=== PATIENT | female | born 1980 | race Caucasian/White ===

== ENCOUNTER 2016-11-28 14:00 | Outpatient (CLI) | payer MEDICAID ==
[~2016-11-28 14:00] MED LIST: CHOL100092 PO; CITA40TA14 PO; CYCL-375 PO; METF10002 PO; MULT-1198 PO; OXCA150T3 PO; OXYC1TAB8 PO; RANI300C PO
[2016-11-28 14:29] LABS: BLOOD, URINE NEGATIVE (NEGATIVE); COLOR,URINE YELLOW (YELLOW); LEUKOCYTE ESTERASE ,URINE 1+ (NEGATIVE); NITRITE,URINE NEGATIVE (NEGATIVE); UROBILINOGEN,URINE 0.2 EU/DL (NORMAL)
[2016-11-28] MEDS ORDERED: PREN1TAB77 PO (14:52)
[2016-11-28] MEDS ORDERED: ASPI81TA43 PO (14:52)
[2016-11-28] MEDS ORDERED: SERT50TA PO (14:52)
[2016-11-28] MEDS ORDERED: INSU100V12 SQ (14:52)
[2016-11-28] MEDS ORDERED: METF500T4 PO (14:52)
[2016-11-28] MEDS ORDERED: CETI10CA19 PO (14:52)
[2016-11-28 15:02] LABS: BACTERIA,URINE TRACE (NEGATIVE); RBC,URINE NONE SEEN /HPF (0-3); SQUAMOUS EPITHELIAL CELL,UR 20-50
[2016-11-28 15:27] LABS: HCT - HEMATOCRIT 35.1 % (36-46); HGB - HEMOGLOBIN 11.9 GM/DL (12-16); MEAN CORPUSCULAR HGB 30.3 UUG (26-34); MEAN CORPUSCULAR HGB CONC(MCHC 33.9 GM/DL (31-37); MEAN CORPUSCULAR VOLUME 89.3 UM3 (80-100); MEAN PLATELET VOLUME 11.3 UM3 (9.4-12.4); RED BLOOD COUNT 3.93 M/MM3 (4.00-5.20); WBC - WHITE BLOOD COUNT 15.1 T/MM3 (4.5-11.0)
[2016-11-28 15:37] LABS: ALBUMIN 3.5 G/DL (3.5-5.0); ALKALINE PHOSPHATASE 108 U/L (38-126); ALT (SGPT) 30 U/L (9-52); ANION GAP 12 MEQ/L (5-15); AST (SGOT) 24 U/L (14-36); BUN/CREATININE RATIO 12 RATIO (6-26); CHLORIDE 109 MEQ/L (98-107); CO2 - CARBON DIOXIDE 22 MEQ/L (22-30); CREATININE 0.5 MG/DL (0.7-1.2); GLOMERULAR FILTRATION RATE 140; GLUCOSE 94 MG/DL (65-110); POTASSIUM 3.9 MEQ/L (3.6-5); SODIUM 143 MEQ/L (134-144); TOTAL PROTEIN 6.9 G/DL (6.3-8.2)
[2016-11-28 15:52] LABS: BAND NEUTROPHILS # 1.4 T/MM3; MONOCYTES # (MANUAL) 0.8 T/MM3 (0-0.8); TOTAL CELLS COUNTED 100 %
== END 2016-11-28 16:47 | disposition home or self-care (01) ==
LOC: MC 14:00 → OBOBS 14:00
PROVIDERS: ATTEND Obstetrics & Gynecology
DX: O26.892 Other specified pregnancy related conditions, second trimester (principal); R10.9 Unspecified abdominal pain; Z3A.27 27 weeks gestation of pregnancy
CPT/HCPCS: 36415; 80053; 81001; 85025; 87086

== ENCOUNTER 2016-12-17 19:47 | Outpatient (CLI) | payer MEDICAID ==
[~2016-12-17 19:47] MED LIST changes: +ASPI81TA43 PO; +CETI10CA19 PO; -CHOL100092 PO; -CITA40TA14 PO; -CYCL-375 PO; +INSU100V12 SQ; -METF10002 PO; +METF500T4 PO; -MULT-1198 PO; -OXCA150T3 PO; -OXYC1TAB8 PO; +PREN1TAB77 PO; +SERT50TA PO
[2016-12-17] MEDS ORDERED: ACET-2321 PO (21:04)
== END 2016-12-17 20:44 | disposition home or self-care (01) ==
LOC: OBOBS 19:47 → MC 19:47 → OBOBS 20:44
PROVIDERS: ATTEND Obstetrics & Gynecology
DX: O26.893 Other specified pregnancy related conditions, third trimester (principal); R10.9 Unspecified abdominal pain; Z3A.31 31 weeks gestation of pregnancy
CPT/HCPCS: 84112

== ENCOUNTER 2016-12-24 02:26 | Outpatient (CLI) | payer MEDICAID ==
[~2016-12-24 02:26] MED LIST changes: +ACET-2321 PO
[2016-12-24 03:09] LABS: BLOOD, URINE NEGATIVE (NEGATIVE); COLOR,URINE YELLOW (YELLOW); LEUKOCYTE ESTERASE ,URINE NEGATIVE (NEGATIVE); NITRITE,URINE NEGATIVE (NEGATIVE); UROBILINOGEN,URINE NORMAL (NORMAL)
[2016-12-24] MEDS ORDERED: ACETAMINOPHEN 500 MG TABLET PO ONE (03:15)
[2016-12-24] MEDS ORDERED: LR 1,000 ML IV ONE (03:24)
[2016-12-24] MEDS ORDERED: DIPH25CA84 PO ×2 (04:24)
[2016-12-24] MEDS ORDERED: CYCL-375 PO (04:29)
--- NOTE | 2016-12-24 11:56 | PNF ---
DATE: 12/24/2016 SUBJECTIVE 36-year-old white female, G2, P0 at 31.0 weeks gestational age who paged me at midnight complaining of contractions. I had her try Benadryl and a warm bath and she called me back at 1:30 a.m. stating that they had gone from every five minutes to every four minutes so I had her come in to be evaluated. heart tones were reassuring on the monitor and reactive. There were some very mild contractions noted on the monitor initially but over the course of an hour and a half they spaced out considerably. We ran a UA which was negative. A glucometer was 110 as she is diabetic. We did give her some Extra-Strength Tylenol. I ordered IV for IV fluid hydration but the patient was unhappy with the placement of the IV and said it hurt and requested it be discontinued so we did that. She was frustrated at Rebecca Swenson RN, the nurse taking care of her at that time and I stated to her that she was one of our very best nurses and takes care of most of our high-risk patients so there is a high likelihood she would see her again because she is a high-risk patient. After having her here for about an hour and a half her contractions dissipated and the patient was asleep in the triage room with her mother and two others and they are watching. I had initially checked the patient's cervix. It was closed, thick and very high. I do not think she is in labor or labor or any aspect of that. She doesn't have a bladder infection. We are seeing her weekly in our office. I think that these were a fair amount of ligament pain with perhaps some very mild contractions on top of that that seemed to dissipate with the Tylenol. I think she is very stable to go home and follow up with me later in the week at her regularly scheduled appointment. Questions were answered to the family's satisfaction. NAE
== END 2016-12-24 04:50 | disposition home or self-care (01) ==
LOC: MC 02:26 → OBOBS 02:26
PROVIDERS: ATTEND Obstetrics & Gynecology
DX: O26.893 Other specified pregnancy related conditions, third trimester (principal); R10.9 Unspecified abdominal pain; Z3A.31 31 weeks gestation of pregnancy; O24.113 Pre-existing type 2 diabetes mellitus, in pregnancy, third trimester; E11.9 Type 2 diabetes mellitus without complications; Z79.4 Long term (current) use of insulin
CPT/HCPCS: 81003; 82948

== ENCOUNTER 2017-02-05 07:30 | Inpatient (IN) ==
[2017-02-05] MEDS ORDERED: CEFAZOLIN PREMIX (MC ONLY) 2 GM/50 ML BAG IV ONE (07:48)
[2017-02-05] MEDS ORDERED: CITRIC ACID/SODIUM CITRATE 30ml PO ONE (07:48)
[2017-02-05] MEDS ORDERED: CEFAZOLIN 1 G INJECTION IVP ONE (07:48)
[2017-02-05] MEDS ORDERED: FAMOTIDINE PB 20 MG/50 ML BAG IV ONE (07:48)
[2017-02-05 08:11] VITALS: BMI 48.4
[2017-02-05] MEDS: LR 1,000 ML IV SCH ×2 (08:59→09:26)
--- NOTE | 2017-02-05 09:04 | Anesthesia Preoperative Report ---
Anesthesia Preoperative Record - Date and Time Date: 02/05/17 Preoperative Diagnosis: Primary Section, O32.1XXO diabetes, , miscarriage Proposed Procedure: NPO Since Date: 02/04/17 NPO Since Time: 02:00 Allergies/Adverse Reactions: Allergies Allergy/AdvReac Type Severity Reaction Status Date / Time doxycycline Allergy Unknown REDNESS, Verified 02/05/17 08:53 RESP DISTRESS ibuprofen AdvReac Intermediate "REALLY Verified 02/05/17 08:53 BAD BLEEDING" fat emulsions Allergy Severe DIFFIUCULTY Uncoded 02/05/17 08:54 BREATHING esomeprazole mag AdvReac Intermediate "I GET Uncoded 02/05/17 08:54 REALLY REALLY SICK" - Vital Signs Vital Signs: Temperature 98.4 F 02/05/17 08:37 Pulse Rate 83 02/05/17 08:37 Respiratory Rate 18 02/05/17 08:37 Blood Pressure 116/57 02/05/17 08:37 Pulse Oximetry 97 02/05/17 08:37 Oxygen Delivery Method Room Air Height and Weight: Height 1.52 m Weight 112.491 kg Body Mass Index 48.4 - Medications Inpatient Medications: Current Medications Lactated Ringer's (Lactated Ringers) 1,000 mls @ 0 mls/hr IV .Q0M KAMERON PRN Reason: As Directed Last Admin: 02/05/17 08:59 Dose: 150 mls/hr Home Medications: Home Medications Medication Instructions Recorded Confirmed Type raNITIdine HCl [Ranitidine HCl] 300 mg PO BID #0 cap 10/26/14 02/04/17 History Aspirin [Aspir-Low] 1 tab PO DAILY #30 tab 11/28/16 02/04/17 History Cetirizine HCl [Zyrtec] 1 cap PO DAILY #0 cap 11/28/16 02/04/17 History Insulin Detemir [Levemir] 44 unit SQ HS #0 vial 11/28/16 02/04/17 History Metformin HCl 500 mg PO BIDWM #0 tab 11/28/16 02/04/17 History Vit No.130/Iron/Folic 1 tab PO DAILY #0 tab 11/28/16 02/04/17 History [ Tablet] Sertraline HCl [Zoloft] 50 mg PO DAILY #0 tab 11/28/16 02/04/17 History Acetaminophen [Tylenol] 1 - 2 tab PO QID #60 tab 12/17/16 02/04/17 History Cyclobenzaprine HCl 1 tab PO BID #0 tab 12/24/16 02/04/17 History diphenhydrAMINE HCl [Benadryl] 1 - 2 cap PO Q6H #0 cap 12/24/16 02/04/17 History Albuterol Inhaler [Ventolin Hfa] 2 puff ORAL INH Q4H PRN 02/04/17 02/04/17 History Albuterol Sulfate [Proventil Hfa] 1 puff INH BID 02/04/17 02/04/17 History Butalb/Acetaminophen/Caffeine 1 each PO PRN PRN 02/04/17 02/04/17 History [Fioricet] - Medical History Respiratory: Reports: Asthma (last inhaler use pulmicort thiss am ) Neuro/Musculoskeletal: Reports: Depression, Other (anxiety, Bipolar) Renal/Endocrine: Reports: Diabetes Mellitus Type 2 (avg bs at home 110 ) Other History: Reports: Other (morbid obesity ) - Surgical History GI Surgery/Treatments: Reports: Cholecystectomy Musculoskeletal Surgery/Tx: Reports: Knee Arthroscopy (left) Reproductive Surgery/Treatment: DENIES: Section Anesthesia Reactions: None Hx Family Anesthesia Reaction: No - Social History Smoking Status: Current some day smoker Substance Use Type: does not use - Pertinent Findings EKG Rhythm: Normal Sinus Rhythm - Physical Exam Respiratory Exam: Present: lungs clear, bilateral breath sounds equal Cardiovascular Exam: Present: regular rate and rhythm, no murmur - Airway Assessment Mallampati Score: III TMD: 2 Fingerbreadths Neck Extension: fair Teeth: other (missing and chipped teeth) - ASA ASA Score: 3 - Plan Regional/Trunk Block: Spinal - Discussion Discussion: Discussed risks/options/alternatives of anesthesia and questions answered. Patient consents. Nursing pain assessment noted. Attestation Statement: Prior to the delivery of any anesthetic medication, I examined the patient, developed the plan, obtained the patient's consent and discussed the risk and benefits of the procedure with the patient/guardian.
[2017-02-05] MEDS ORDERED: FentaNYL 100 MCG/2 ML INJECTION ONE (09:17)
[2017-02-05] MEDS ORDERED: MORPHINE SULFATE PF 5mg/10ml INJ (Duramorph) ONE (09:17)
[2017-02-05] MEDS ORDERED: SALINE FLUSH 10ml SYRINGE ONE (09:19)
[2017-02-05] MEDS ORDERED: EPHEDRINE 50mg/ml INJECTION ONE (09:19)
[2017-02-05] MEDS ORDERED: ONDANSETRON 4 MG/2 ML INJECTION ONE (09:19)
[2017-02-05] MEDS ORDERED: OXYTOCIN DRIP 30 UNIT/500 ML ML IV SCH ×3 (10:13→11:44)
[2017-02-05] MEDS: D5LR 1,000 ML IV SCH ×2 (11:30→21:46)
[2017-02-05] MEDS ORDERED: ONDANSETRON 4 MG/2 ML INJECTION IVP PRN ×2 (11:39→11:44)
[2017-02-05] MEDS ORDERED: NALBUPHINE 10 MG/ML INJECTION IVP PRN (11:39)
[2017-02-05] MEDS ORDERED: NALOXONE 2 MG/2 ML INJECTION PFS IVP PRN (11:39)
[2017-02-05] MEDS ORDERED: CALCIUM CARBONATE Chewable 500mg TABLET PO PRN (11:44)
[2017-02-05] MEDS ORDERED: SALINE FLUSH 10ml SYRINGE IVF PRN (11:44)
[2017-02-05] MEDS ORDERED: DiphenhydrAMINE 25 MG CAPSULE PO PRN (11:44)
[2017-02-05] MEDS ORDERED: HYDROCORTISONE 2.5% CREAM 30gm RECTALLY PRN (11:44)
--- NOTE | 2017-02-05 15:51 | Anesthesia Postoperative Note ---
- Date and Time Date: 02/05/17 Time: 15:50 - Status Patient Participated in Evaluation: Patient Participated in Person Vital Signs: Temperature 98.4 F 02/05/17 08:37 Pulse Rate 83 02/05/17 08:37 Respiratory Rate 18 02/05/17 08:37 Blood Pressure 116/57 02/05/17 08:37 Pulse Oximetry 97 02/05/17 08:37 Oxygen Delivery Method Room Air Respiratory Function: Airway Patent, Regular Respirations Cardiovascular Function: Regular Pulse Mental Status: Alert and Oriented Pain Intensity: 3 Hydration: Taking PO Fluids, IV Infusing Complications During Recover: None Apparent - Follow-Up Instructions Instructions: Per Surgeon
[2017-02-05] MEDS: Oxycodone/Acetaminophen 5/325 1 TAB PO PRN ×2 (16:17→20:34)
[2017-02-05] MEDS: SIMETHICONE 80 MG CHEWABLE TABLET PO SCH (20:40)
[2017-02-05] MEDS: SIMETHICONE 80 MG CHEWABLE TABLET PO PRN ×2 (20:41→22:01)
[2017-02-05] MEDS: SERTRALINE 50 MG TABLET PO SCH (21:46)
[2017-02-06] MEDS: ACETAMINOPHEN 500 MG TABLET PO PRN ×2 (01:56→07:46)
[2017-02-06] MEDS: SIMETHICONE 80 MG CHEWABLE TABLET PO SCH ×4 (01:56→20:23)
--- NOTE | 2017-02-06 08:10 | OB/GYN Progress Note ---
OB-PP Progress Note - General POD:: POD1 - Subjective Date: 02/06/17 Lochia: Moderate Pain: contolled Voiding: voiding Nausea or Vomiting Present: No - Objective Vital Signs: Last Vital Signs Temp 98.3 F 02/06/17 03:27 Pulse 81 02/06/17 03:27 Resp 18 02/06/17 03:27 BP 120/66 02/06/17 03:27 Pulse Ox 98 02/05/17 23:11 Urine Output: good General: alert and oriented Respiratory: non-labored Abdomen: fundus firm Incision: intact (Dressing removed. CHINO drain intact. 17cc at 03:30. ) Extremities: non-tender Edema: none Laboratory: Laboratory Results - last 24 hr 02/05/17 02/05/17 02/05/17 08:30 08:30 08:31 WBC 18.7 H RBC 3.86 L Hgb 11.4 L Hct 34.6 L MCV 89.6 MCH 29.5 MCHC 32.9 RDW Std Deviation 44.0 Plt Count 290 MPV 11.1 Immature Gran % (Auto) Not performed Neut % (Auto) Not performed Lymph % (Auto) Not performed [place] % (Auto) Not performed Eos % (Auto) Not performed Baso % (Auto) Not performed Neut # Not performed Lymph # Not performed [place] # Not performed Eos # Not performed Baso # Not performed Abs Immat Gran (auto) Not performed Neutrophils % (Manual) 74.0 H Band Neutrophils % 1.0 Lymphocytes % (Manual) 13.0 L Monocytes % (Manual) 11.0 H Eosinophils % (Manual) 1.0 Neutrophils # (Manual) 13.8 H Band Neutrophils # 0.2 Lymphocytes # (Manual) 2.4 Monocytes # (Manual) 2.1 H Eosinophils # (Manual) 0.2 RBC Morph Comment Normal Glucometer 96 Ur Collection Type Urine Color Urine Clarity Urine pH Ur Specific [place] Urine Protein Urine Glucose (UA) Urine Ketones Urine Occult Blood Urine Nitrate Urine Bilirubin Urine Urobilinogen Ur Leukocyte Esterase Urine RBC Urine WBC Ur Squamous Epith Cells Ur Transition Epith Cell Ur Renal Epithelial Cell Urine Bacteria Ur Culture Indicated? Blood Type A Positive Antibody Screen Negative 02/05/17 02/05/17 02/05/17 11:15 14:19 16:32 WBC 22.6 H RBC 3.78 L Hgb 11.3 L Hct 34.0 L MCV 89.9 MCH 29.9 MCHC 33.2 RDW Std Deviation 44.1 Plt Count 315 MPV 11.2 Immature Gran % (Auto) Neut % (Auto) Lymph % (Auto) [place] % (Auto) Eos % (Auto) Baso % (Auto) Neut # Lymph # [place] # Eos # Baso # Abs Immat Gran (auto) Neutrophils % (Manual) Band Neutrophils % Lymphocytes % (Manual) Monocytes % (Manual) Eosinophils % (Manual) Neutrophils # (Manual) Band Neutrophils # Lymphocytes # (Manual) Monocytes # (Manual) Eosinophils # (Manual) RBC Morph Comment Glucometer 89 Ur Collection Type Urine, werner Urine Color Yellow Urine Clarity Clear Urine pH 7.5 Ur Specific [place] 1.015 Urine Protein 1+ A Urine Glucose (UA) Negative Urine Ketones Negative Urine Occult Blood 1+ A Urine Nitrate Negative Urine Bilirubin Negative Urine Urobilinogen 0.2 Ur Leukocyte Esterase Negative Urine RBC 5-10 H Urine WBC None seen Ur Squamous Epith Cells 0-5 Ur Transition Epith Cell 5-10 Ur Renal Epithelial Cell 0-1 Urine Bacteria None seen Ur Culture Indicated? Cult not indicated Blood Type Antibody Screen 02/05/17 02/06/17 20:46 06:03 WBC RBC Hgb Hct MCV MCH MCHC RDW Std Deviation Plt Count MPV Immature Gran % (Auto) Neut % (Auto) Lymph % (Auto) [place] % (Auto) Eos % (Auto) Baso % (Auto) Neut # Lymph # [place] # Eos # Baso # Abs Immat Gran (auto) Neutrophils % (Manual) Band Neutrophils % Lymphocytes % (Manual) Monocytes % (Manual) Eosinophils % (Manual) Neutrophils # (Manual) Band Neutrophils # Lymphocytes # (Manual) Monocytes # (Manual) Eosinophils # (Manual) RBC Morph Comment Glucometer 130 126 Ur Collection Type Urine Color Urine Clarity Urine pH Ur Specific [place] Urine Protein Urine Glucose (UA) Urine Ketones Urine Occult Blood Urine Nitrate Urine Bilirubin Urine Urobilinogen Ur Leukocyte Esterase Urine RBC Urine WBC Ur Squamous Epith Cells Ur Transition Epith Cell Ur Renal Epithelial Cell Urine Bacteria Ur Culture Indicated? Blood Type Antibody Screen - Assessment Assessment: Primary C/S - Plan Plan: routine care (Over heard patient calling her mom a "jerk". )
[2017-02-06] MEDS: METFORMIN 500 MG TABLET PO SCH ×2 (08:31→17:42)
--- NOTE | 2017-02-06 08:37 | Operative Note ---
DATE OF SURGERY: 02/05/2017 PREOPERATIVE DIAGNOSIS 1. 36-year-old white female, G2, P0, at 37.1 weeks gestational age. 2. Advanced maternal age. 3. Poor history. 4. Insulin-dependent diabetic, also on metformin. 5. Unengaged fetus. 6. Maternal asthma. 7. Patient refuses induction. 8. Morbid obesity. POSTOPERATIVE DIAGNOSIS: Same plus female , Apgars, 2464 g (Dana Stewart). PROCEDURE: Primary low transverse section. EBL: 800 ml ANESTHESIA: Spinal by Zachary Esteban CRNA SURGEON: Erasto Beltrán MD MONUMENT SETTER HELPER: Luis Chapa, Insulation Worker Apprentice BRIEF HISTORY This is a patient of mine who had a poor outcome on her first . She started this with Dr. Villalta in [place] but [place] early on at 9 weeks gestational age. She is a preexisting diabetic who was already on insulin and sees Dr. Zachary Bernal in [place] for diabetes care. As of today she is on 75 units of insulin daily. The past several weeks the patient's baby has been in the breech position. For that reason we scheduled the delivery today. Timing of the delivery was due to the problems with her insulin-dependent diabetes. She is also high risk because of advanced maternal age. A few days ago the infant flipped to a vertex position and I talked to the patient about induction rather than and she flatly refuses induction. The cervix was closed, thick and high and the baby is unengaged and so primary became an option. We needed to deliver the baby now that were term and if she declines the induction then this is our option. DESCRIPTION OF PROCEDURE After adequate spinal anesthesia, the patient was prepped and draped in the left lateral decubitus position. A Pfannenstiel skin incision was made with a sharp knife and carried down to the fascia. There was about 4 inches thickness before we hit fascia. Fascia was incised transversely with Farris scissors. Rectus fascia was bluntly and sharply dissected off rectus muscle. Rectus muscles were divided. Peritoneum was isolated, entered and extended cephalad and caudad. Bladder blade was inserted and the bladder was dissected off the lower uterine segment. Bladder blade was reinserted. Then a transverse incision was made in the lower uterine segment and it was extended with my fingers. Infant was delivered from the vertex position. It took some repositioning due to the patient's size, but we were able to deliver vertex and bulb suction after delivery of the head and then again after delivery of the body. Cord was doubly clamped and cut and the infant was received by Dr. Tim Nicole of pediatrics. Placenta was manually removed and was intact. It was sent to surgical pathology due to the diabetes and the elevated white count on admission. The uterus was externalized and cleansed with moist lap sponges and then closed with 0 Monocryl in a running locking fashion bilaterally from the lateral aspects medially. Several additional [id number] sutures were placed at the end to complete hemostasis. Tubes and ovaries looked normal. Uterus was hemostatic and the bladder dissection was not down very far so we didn't reapproximate it. The uterus was returned to the abdominal cavity and then the abdomen was closed in layers. The peritoneum was closed using 2-0 Vicryl in a running nonlocking fashion. The fascia was closed using 0 Vicryl in a running nonlocking fashion bilaterally from the lateral aspects medially. A 15-[place] Torey-Akins drain was placed on top of the fascia and brought out the right side lateral to the incision. It was sewn in place with 2-0 Monocryl. Viet's fascia was reapproximated with 2-0 chromic and then 4-0 Vicryl in a subcuticular manner was used to close the skin. The patient went to recovery room in stable condition. [facility] INSAN[facility]ory
[2017-02-06] MEDS: DOCUSATE CALCIUM 240 MG CAPSULE PO SCH (10:03)
[2017-02-06] MEDS: SERTRALINE 50 MG TABLET PO SCH (10:04)
[2017-02-06] MEDS: CETIRIZINE 10 MG TABLET PO SCH (10:22)
[2017-02-06] MEDS: RANITIDINE 300 MG TABLET PO SCH (10:25)
--- NOTE | 2017-02-06 12:28 | Progress Note ---
OB PP Progress Note Free Text - Date Date: 02/06/17 - Progress Note Progress Note: pod 1 doing ok brodie drain cleaned pain controlled pt walking in the halls blood sugars reviewed. metformin restarted this am. q&a
[2017-02-06] MEDS: Oxycodone/Acetaminophen 5/325 1 TAB PO PRN ×2 (12:30→20:20)
[2017-02-06] MEDS: D5LR 1,000 ML IV SCH ×2 (15:44→20:18)
[2017-02-06 17:22] VITALS: RESP 16
--- NOTE | 2017-02-06 17:42 | Progress Note ---
OB PP Progress Note Free Text - Date Date: 02/06/17 - Progress Note Progress Note: no c/o this evening. [email or web address]
[2017-02-07 00:49] VITALS: O2SAT 98
[2017-02-07] MEDS: SIMETHICONE 80 MG CHEWABLE TABLET PO SCH (00:50)
[2017-02-07] MEDS: Oxycodone/Acetaminophen 5/325 1 TAB PO PRN (02:11)
[2017-02-07 07:24] VITALS: BP 116/69; PULSE 76; TEMP 98.7
--- NOTE | 2017-02-07 08:09 | Discharge Instructions ---
Discharge Plan - Med Rec/Dispo Prescriptions: New Docusate Calcium [Surfak] 240 mg PO DAILY capsule Oxycodone/APAP 5/325 [Percocet 5/325] 1 - 2 tab PO Q4H PRN #25 tablet PRN Reason: Pain Continue raNITIdine HCl [Ranitidine HCl] 300 mg PO BID #0 cap Metformin HCl 500 mg PO BIDWM #0 tab Aspirin [Aspir-Low] 1 tab PO DAILY #30 tab Cetirizine HCl [Zyrtec] 1 cap PO DAILY #0 cap Sertraline HCl [Zoloft] 50 mg PO DAILY #0 tab Insulin Detemir [Levemir] 44 unit SQ HS #0 vial Cyclobenzaprine HCl 1 tab PO BID #0 tab Albuterol Sulfate [Proair Hfa] 2 puff AEROSOL PRN PRN PRN Reason: Shortness Of Air Vit No.130/Iron/Folic [ Tablet] 1 tab PO DAILY #0 tab Acetaminophen [Tylenol] 1 - 2 tab PO QID #60 tab diphenhydrAMINE HCl [Benadryl] 1 - 2 cap PO Q6H #0 cap Butalb/Acetaminophen/Caffeine [Fioricet] 1 each PO PRN PRN PRN Reason: Headache Discharge Instructions/Outpatient Orders: Final Provider Discharge Instructions Location: Determined By Patient - Disposition 01 Discharged Home, Self-Care
--- NOTE | 2017-02-07 08:22 | OB/GYN Progress Note ---
OB-PP Progress Note - General POD:: POD2 - Subjective Date: 02/07/17 Lochia: Minimal Pain: contolled (pain controlled with percocet) Voiding: voiding Nausea or Vomiting Present: No - Objective Vital Signs: Last Vital Signs Temp 98.7 F 02/07/17 07:24 Pulse 76 02/07/17 07:24 Resp 16 02/07/17 07:24 BP 116/69 02/07/17 07:24 Pulse Ox 98 02/07/17 07:24 Urine Output: good General: alert and oriented Abdomen: fundus firm Incision: intact (CHINO drain in place. 11cc drainage since 299) Extremities: non-tender Laboratory: Laboratory Results - last 24 hr 02/06/17 02/06/17 02/07/17 10:29 20:11 07:28 Glucometer 156 127 177 - Assessment Assessment: Primary C/S - Plan Plan: routine care, discharge home
[2017-02-07] MEDS: DOCUSATE CALCIUM 240 MG CAPSULE PO SCH (08:36)
[2017-02-07] MEDS: METFORMIN 500 MG TABLET PO SCH (08:36)
[2017-02-07] MEDS: CETIRIZINE 10 MG TABLET PO SCH (08:37)
[2017-02-07] MEDS: RANITIDINE 300 MG TABLET PO SCH (08:37)
[2017-02-07] MEDS: SERTRALINE 50 MG TABLET PO SCH (10:30)
== END 2017-02-07 10:28 | disposition home or self-care (01) | DRG 765 ==
LOC: MC 07:33
PROVIDERS: ADMIT Obstetrics & Gynecology; ATTEND Obstetrics & Gynecology